=== PATIENT | female | born 1955 | race Caucasian/White ===

== ENCOUNTER 2019-05-19 13:15 | Emergency (ER) | payer OTHER ==
[~2019-05-19] VITALS: Ht 165.1 cm; Wt 79.4 kg
--- NOTE | 2019-05-19 14:34 | Diagnostic Imaging Report ---
CT [facility] HISTORY: Fall COMPARISON: None. TECHNIQUE: Noncontrast axial scans were obtained from skull base to the vertex. Coronal and sagittal reconstructions obtained from the axial data. One or more of the following dose reduction techniques were used: Automated exposure control, adjustment of the mA and/or kV according to patient size, and/or utilization of iterative reconstruction technique. DISCUSSION: Scalp/Skull: Unremarkable. Brain sulci: Appropriate for patient's age. Ventricles: Normal in size and configuration. No hydrocephalus. Extra-axial spaces: No masses or fluid collections. Mild carotid siphon calcifications are present. Parenchyma: No abnormal densities. No mass, hemorrhage, or large vascular territory acute infarct. Dural sinuses: No abnormal densities. Sellar/Suprasellar region: Intact. Skull base: Intact. Incidental findings: There is mild scattered paranasal sinus mucosal thickening. IMPRESSION: No acute intracranial abnormalities. Signed by: Dr. Hank Youssef M.D. on 05/19/2019 2:31 PM
--- NOTE | 2019-05-19 14:37 | Diagnostic Imaging Report ---
CT C-SPINE W/O - [facility] HISTORY: Fall COMPARISON: Concurrent head CT TECHNIQUE: CT of the cervical spine without contrast. Sagittal and coronal reformations were created. One or more of the following dose reduction techniques were used: Automated exposure control, adjustment of the mA and/or kV according to patient size, and/or utilization of iterative reconstruction technique. FINDINGS: Cervical lordosis is straightened. There is no scoliosis or subluxation. No fractures, compression deformity, or destructive osseous lesions are seen. The craniocervical junction is intact. No gross spinal canal masses are seen. The paravertebral and paraspinal soft tissues are unremarkable. Multilevel spondylosis is moderate at C5-C6. Multilevel bilateral facet arthrosis is most prominent on the left at C3-C4. Mild atlantoaxial arthrosis is present as well. Small right thyroid coarse calcification is present. IMPRESSION: 1. No acute osseous abnormalities. 2. Multilevel spondylosis, moderate at C5-C6. Signed by: Dr. Hank Youssef M.D. on 05/19/2019 2:35 PM
--- NOTE | 2019-05-19 14:40 | Diagnostic Imaging Report ---
[facility] HISTORY: Fall COMPARISON: Concurrent head and cervical spine CT TECHNIQUE: Axial CT images through the face were obtained without contrast. Coronal/sagittal reformations were created. One or more of the following dose reduction techniques were used: Automated exposure control, adjustment of the mA and/or kV according to patient size, and/or utilization of iterative reconstruction technique. DISCUSSION: No acute fracture is seen. No destructive osseous lesions are seen. The orbits are intact. Intraorbital contents are grossly unremarkable. Mild scattered paranasal sinus mucosal thickening is present. IMPRESSION: No acute osseous abnormalities in the face. Signed by: Dr. Hank Youssef M.D. on 05/19/2019 2:38 PM
--- NOTE | 2019-05-19 14:43 | Diagnostic Imaging Report ---
Exam: left hand 2 views History: pain Comparison: None. Findings: No fracture or malalignment. Joint spaces preserved. No abnormal soft tissue calcification or soft tissue defect. Impression: No acute osseous abnormality Signed by: Dr. Atul Acevedo M.D. on 05/19/2019 2:41 PM
== END 2019-05-19 15:00 | disposition home or self-care (01) ==
LOC: FSED 13:15
DX: S00.81XA Abrasion of other part of head, initial encounter (principal); S60.512A Abrasion of left hand, initial encounter; S16.1XXA Strain of muscle, fascia and tendon at neck level, initial encounter; J44.9 Chronic obstructive pulmonary disease, unspecified; W01.0XXA Fall on same level from slipping, tripping and stumbling without subsequent striking against object, initial encounter; Y93.01 Activity, walking, marching and hiking; Y92.488 Other paved roadways as the place of occurrence of the external cause
CPT/HCPCS: 70450; 70486; 72125; 99284